=== PATIENT | female | born 1950 ===

== ENCOUNTER 2024-04-02 11:41 | Inpatient (IN) ==
[~2024-04-02 11:41] MED LIST: NS 0.45% 1000 ml BAG 1,000 ML IV SCH; Naloxone 0.4 mg VIAL 0.4 mg/ml 1 ml VIAL IV PRN; Ondansetron 4 mg VIAL 2 MG/ML 2 ml VIAL IV PRN
[2024-04-02] MEDS ORDERED: ceFAZolin 2 GM PREMIX 2 GM/50 ML BAG ONE (12:06)
[2024-04-02] MEDS ORDERED: Tranexamic Acid 1 GM/100ML BAG 2,000 MG/200 ML BAG IV ONE (12:06)
[2024-04-02] MEDS ORDERED: Propofol 10 MG/ML 20 ML BTL ONE (12:12)
[2024-04-02] MEDS ORDERED: Lidocaine 2% PF 5 ML VIAL ONE (12:12)
[2024-04-02] MEDS: Lactated Ringers 1000 ml BAG 1,000 ML IV SCH ×2 (12:26→20:28)
[2024-04-02 12:55] LABS: Rapid COVID-19 Molecular Undetected (Undetected)
[2024-04-02] MEDS ORDERED: ROPIVACAINE 5 MG/ML 30 ML BTL (0.5%) ONE (13:50)
[2024-04-02] MEDS ORDERED: Rocuronium 50 mg VIAL 10 mg/ml 5 ml VIAL (50 mg) ONE (14:23)
[2024-04-02] MEDS ORDERED: fentaNYL 250 mcg/5 ml 50 MCG/ML 5 ml VIAL (250 MCG) ONE (14:24)
[2024-04-02] MEDS ORDERED: HYDROmorphone 0.5 MG/0.5 ML SYRINGE ONE ×2 (14:54→15:22)
[2024-04-02] MEDS ORDERED: Dexamethasone IV 4 MG/ML VIAL 1 ml VIAL ONE (15:03)
[2024-04-02] MEDS ORDERED: Ondansetron 4 mg VIAL 2 MG/ML 2 ml VIAL ONE (15:03)
[2024-04-02] MEDS ORDERED: fentaNYL 100 mcg/2 ml 50 MCG/ML VIAL ONE ×2 (15:18→17:27)
[2024-04-02] MEDS ORDERED: Esmolol 10 MG/ML 10 ML (100 mg) IV ONE (15:23)
[2024-04-02] MEDS ORDERED: Ondansetron ODT 4 mg TAB 4 MG TAB PO PRN (17:06)
[2024-04-02] MEDS ORDERED: Morphine 2 MG/ML SYRINGE IV PRN (17:06)
[2024-04-02] MEDS ORDERED: Calcium Carb (TUMS) 500 mg CHEW TAB PO PRN (17:06)
[2024-04-02] MEDS: fentaNYL 100 mcg/2 ml 50 MCG/ML VIAL IV PRN (17:30)
[2024-04-02] MEDS ORDERED: Acetaminophen IV 1 GM/100ML 1,000 MG/100 ML BAG IV ONE (18:59)
[2024-04-02] MEDS: Acetaminophen IV 1 GM/100ML 1,000 MG/100 ML BAG IV ONE (19:01)
[2024-04-02] MEDS: Magnesium Hydroxide LIQ 30 ML UDC PO SCH (20:50)
[2024-04-02] MEDS: ceFAZolin 2 GM PREMIX 2 GM/50 ML BAG IV SCH (22:15)
[2024-04-02] MEDS: Buffered Lidocaine 1% SYRIN 1 ml INTRADERM ONE (23:14)
[2024-04-03 06:07] LABS: Hematocrit 31.9 % (35-45); Hemoglobin 10.8 g/dL (11.5-14.3); Mean Platelet Volume 8.7 fL (7.5-11.2); Platelet Count 229 10^3/uL (150-450)
[2024-04-03 06:31] LABS: Calcium 8.2 mg/dL (8.6-10.3); Creatinine, Serum 0.56 mg/dL (0.51-0.95); Potassium 3.9 mmol/L (3.5-5.0); eGFR CKD-EPI 95.1 (>60)
[2024-04-03] MEDS: CMCS: Simvastatin 20 mg TAB (NF) PO SCH (09:17)
[2024-04-03] MEDS: Vitamin THERAPEUTIC TAB PO SCH (09:25)
[2024-04-04 05:43] LABS: Hematocrit 27.5 % (35-45); Hemoglobin 9.4 g/dL (11.5-14.3); Mean Platelet Volume 8.3 fL (7.5-11.2); Platelet Count 191 10^3/uL (150-450)
[2024-04-05 06:35] LABS: Hematocrit 28.9 % (35-45); Mean Platelet Volume 8.6 fL (7.5-11.2); Platelet Count 202 10^3/uL (150-450)
[2024-04-05] MEDS: Lactulose 30 ml UDC PO PRN (20:20)
[2024-04-05] MEDS: Magnesium Hydroxide LIQ 30 ML UDC PO PRN (20:20)
[2024-04-06 05:51] LABS: Hematocrit 30.3 % (35-45); Hemoglobin 10.3 g/dL (11.5-14.3); Mean Platelet Volume 8.4 fL (7.5-11.2); Platelet Count 244 10^3/uL (150-450)
[2024-04-06] MEDS: Ondansetron 4 mg VIAL 2 MG/ML 2 ml VIAL IV PRN (17:38)
[2024-04-06] MEDS: Al Hydrox/Mg Hydrox/Simet LIQ 30 ML UDC PO ONE (18:49)
[2024-04-07 05:48] LABS: Hematocrit 29.5 % (35-45); Mean Platelet Volume 7.9 fL (7.5-11.2); Platelet Count 256 10^3/uL (150-450)
[2024-04-09 10:31] VITALS: BP 129/71
== END 2024-04-09 14:45 | disposition home or self-care (01) | DRG 470 ==
LOC: OR 11:41 → SSU 11:41
PROVIDERS: ADMIT Orthopaedic Surgery Adult Reconstructive Orthopaedic Surgery; ATTEND Orthopaedic Surgery Adult Reconstructive Orthopaedic Surgery